=== PATIENT | female | born 1990 | race Caucasian/White ===

== ENCOUNTER 2018-10-10 11:40 | Outpatient (CLI) | payer OTHER ==
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
== END 2018-10-10 12:12 ==
LOC: RAD 11:40 → EEVIPCON 11:40 → RAD 12:12
PROVIDERS: ATTEND Internal Medicine
DX: G23.8 Other specified degenerative diseases of basal ganglia (principal); J34.2 Deviated nasal septum; M40.40 Postural lordosis, site unspecified; V29.9XXA Motorcycle rider (driver) (passenger) injured in unspecified traffic accident, initial encounter; Y93.9 Activity, unspecified; Y92.89 Other specified places as the place of occurrence of the external cause; Y99.8 Other external cause status
CPT/HCPCS: 70450-TC; 70486-TC; 72125-TC